=== PATIENT | male | born 1940 | race Caucasian/White ===

== ENCOUNTER → 2021-08-19 | Outpatient (CLI) | payer MEDICARE ==
[~2021-08-19] MED LIST: ADULT LOW DOSE81 MG PO; ADVAIR 250-501 EACH INH; CARDIZEM CD240 MG PO; COLACE 100 MG100 MG PO; IRON325 PO; MIRALAX255 GM PO; MOM PO; MULTIVITAMINS PO; PRAVACHOL40 MG PO; PROAIR HFA8.5 GM INH; SENNA PO; SPIRIVA18 MCG INH; ZESTRIL5 MG PO; ZIAC 2.5-6.251 EACH PO
== END ==
LOC: M.CT 10:12
PROVIDERS: ATTEND Internal Medicine Critical Care Medicine
DX: J98.4 Other disorders of lung (principal); I70.0 Atherosclerosis of aorta; I25.10 Atherosclerotic heart disease of native coronary artery without angina pectoris; R91.1 Solitary pulmonary nodule

== ENCOUNTER 2021-10-13 15:24 | Inpatient (IN) | payer MEDICARE ==
[~2021-10-13] VITALS: Ht 172.7 cm; Wt 89.8 kg
[2021-10-13 15:33] VITALS: BP 116/57
[2021-10-13 16:19] LABS: ABSOLUTE LYMPHOCYTES 0.5 thou/uL (0.8-5.3); ABSOLUTE MONOCYTES 0.4 thou/uL (0.0-1.2); ABSOLUTE NEUTROPHILS 4.7 thou/uL (1.6-8.1); BASOPHILS 0.3 %; HEMATOCRIT 50.4 % (42.0-52.0); HEMOGLOBIN 17.1 gm/dL (14.0-18.0); LYMPHOCYTES 9.1 %; MCHC 33.9 g/dL (28.0-37.0); MCV 94.5 fL (80.0-100.0); MONOCYTES 6.8 %; MPV 8.7 fl. (7.2-11.1); NUCLEATED RBCS 0 /100WBC; PLATELET COUNT* 135 thou/uL (150-400); POLYS 83.8 %; RBC 5.33 mil/uL (4.50-6.00); RDW-CV 14.1 % (10.5-14.5); WBC 5.6 thou/uL (4.0-11.0)
[2021-10-13 16:31] LABS: APTT 29.8 Seconds (25.0-31.3); PROTIME 10.6 Seconds (9.20-11.50)
[2021-10-13 16:49] LABS: CALCIUM 8.7 mg/dL (8.5-10.1); CREATININE 1.9 mg/dL (0.6-1.3)
[2021-10-13 17:00] LABS: ALBUMIN 3.5 g/dL (3.4-5.0); TOTAL BILIRUBIN 0.8 mg/dL (<0.1-1.0); TOTAL PROTEIN 6.9 g/dL (6.4-8.2)
[2021-10-13 17:09] LABS: URINE BLOOD 3+ (Negative); URINE CLARITY TURBID; URINE COLOR BROWN; URINE GLUCOSE-RANDOM NEGATIVE (Negative); URINE KETONES 1+ (Negative); URINE PROTEIN 3+ (Negative); URINE SPECIFIC GRAVITY <= 1.005 (1.005-1.030)
[2021-10-13 17:21] LABS: URINE BILIRUBIN 1+ (Negative); URINE LEUKOCYTES-REFLEX 3+ (Negative); URINE NITRITE-REFLEX POSITIVE (Negative)
[2021-10-13 17:22] LABS: ICTOTEST (BILI CONFIRMATORY) Negative (Negative)
[2021-10-13 17:24] LABS: BACTERIA-REFLEX None Seen /HPF (None Seen); CASTS None Seen /LPF (None Seen); CRYSTALS None Seen /LPF (None Seen); SQUAMOUS NONE SEEN /LPF (0-3); URINE RBC >20 Many /HPF (0-2); URINE WBC-REFLEX 0-5 Rare /HPF (0-5)
[2021-10-13 17:25] LABS: AMORPHOUS URATES Many /LPF (None Seen)
[2021-10-13 18:26] LABS: BE -3.5 mmol/L (-2 to +3); PCO2 40.4 mmHg (35.0-45.0); PO2 63.5 mmHg (75.0-100.0)
[2021-10-13 19:15] VITALS: BP 118/57
[2021-10-14] VITALS (7 sets, daily range): BP systolic 115–138; BP diastolic 64–74
--- NOTE | 2021-10-14 10:54 | EKG ---
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 /EPI
--- NOTE | 2021-10-14 11:03 | EKG ---
[place] [address] ELECTROCARDIOGRAM REPORT Name: GAUDENCIO SKAGGSKEYSHA Fernandez Room: [place] [address] ADM IN [facility]#: [id number] Admission: 10/13/21 Attend Phys: Jam Navarrete Discharge: Date of : 38 Date of Service: 10/14/21311 Report #: [id number] THIS REPORT FOR: //name// [facility] ED Test Date: 2021-10-14 Test Time: 03:12:50 Pat Name: BLANCA SKAGGS Department: Room: [place] [address] Gender: M Thread Laster: MARCELINO : 1940 Requested By: Jam Navarrete Order Number: [id number] MD: Cali Dent Measurements Intervals [place] Rate: 84 P: [place]: QRS: 91 QRSD: 152 T: 30 QT: 406 QTc: 480 Interpretive Statements Atrial fibrillation Right bundle branch block Compared to ECG 10/13/2021 16:15:25 Right bundle-branch block now present rate has slowed Electronically Signed On 10-14-2021 11:03:21 FURNACE LINER by Cali Dent [email or web address] <ELECTRONICALLY SIGNED> By: Cali Dent MD, FAC 10/14/21 1103 1 Cali Dent MD, [facility] /EPI
[2021-10-14] MEDS ORDERED: CILOSTAZOL 100100 MG PO (16:22)
[2021-10-14] MEDS ORDERED: SPIRIVA RESPIMAT4 G1 INH (16:28)
[2021-10-14] MEDS ORDERED: SYMBICORT160 MCG/4. INH (16:28)
[2021-10-14] MEDS ORDERED: MONTELUKAST SODI4 M1 PO (16:29)
[2021-10-14] MEDS ORDERED: BISOPROLOL-HCT1 EAC2 PO (16:30)
[2021-10-14 18:10] LABS: ABSOLUTE LYMPHOCYTES 0.6 thou/uL (0.8-5.3); ABSOLUTE MONOCYTES 0.3 thou/uL (0.0-1.2); ABSOLUTE NEUTROPHILS 2.8 thou/uL (1.6-8.1); BASOPHILS 0.2 %; EOSINOPHILS 0.2 %; HEMOGLOBIN 15.3 gm/dL (14.0-18.0); MCH 31.7 pg (26.0-34.0); MCHC 32.5 g/dL (28.0-37.0); MCV 97.6 fL (80.0-100.0); MPV 10.3 fl. (7.2-11.1); NUCLEATED RBCS 0 /100WBC; PLATELET COUNT* 126 thou/uL (150-400); POLYS 75.6 %; RBC 4.81 mil/uL (4.50-6.00); RDW-CV 14.4 % (10.5-14.5); WBC 3.7 thou/uL (4.0-11.0)
[2021-10-14 18:27] LABS: ALBUMIN 2.6 g/dL (3.4-5.0); CALCIUM 7.9 mg/dL (8.5-10.1); CREATININE 1.8 mg/dL (0.6-1.3); POTASSIUM 4.5 mmol/L (3.5-5.1); TOTAL BILIRUBIN 0.5 mg/dL (<0.1-1.0); TOTAL PROTEIN 5.7 g/dL (6.4-8.2)
[2021-10-15] VITALS (7 sets, daily range): BP systolic 102–143; BP diastolic 60–79
[2021-10-15 01:54] LABS: BE -2.1 mmol/L (-2 to +3); PCO2 49.4 mmHg (35.0-45.0); PO2 102.4 mmHg (75.0-100.0); pH 7.316 (7.340-7.450)
[2021-10-15 04:32] LABS: HEMOGLOBIN 15.2 gm/dL (14.0-18.0); MCH 31.6 pg (26.0-34.0); MCHC 33.1 g/dL (28.0-37.0); MCV 95.3 fL (80.0-100.0); MPV 8.6 fl. (7.2-11.1); NUCLEATED RBCS 0 /100WBC; PLATELET COUNT* 117 thou/uL (150-400); RBC 4.82 mil/uL (4.50-6.00); WBC 2.9 thou/uL (4.0-11.0)
[2021-10-15 04:58] LABS: CALCIUM 8.6 mg/dL (8.5-10.1); CREATININE 1.4 mg/dL (0.6-1.3); POTASSIUM 4.7 mmol/L (3.5-5.1)
[2021-10-15 07:58] LABS: ABSOLUTE LYMPHOCYTES 2.6 thou/uL (0.8-5.3); ABSOLUTE NEUTROPHILS 0.3 thou/uL (1.6-8.1); ATYPICAL LYMPHS 2 %; PLATELET ESTIMATE DECREASED
--- NOTE | 2021-10-15 16:27 | EKG ---
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 : 1940 Requested By: Kashmir Denton Order Number: [id number] Waleska MD: Elier Araiza Measurements Intervals [place] Rate: 91 P: [place]: QRS: 91 QRSD: 142 T: 36 QT: 391 QTc: 482 Interpretive Statements Atrial fibrillation Ventricular premature complex Right bundle branch block Anteroseptal infarct, age indeterminate Compared to ECG 10/14/2021 03:12:50 Ventricular premature complex(es) now present Myocardial infarct finding now present Electronically Signed On 10-15-2021 16:26:59 RETAIL CUSTODIAL ASSOCIATE by Elier Araiza [email or web address] <ELECTRONICALLY SIGNED> By: Elier Araiza MD, FACC 10/15/21 1626 1452 1452 Elier Araiza MD, FAC /EPI
[2021-10-16] VITALS: BP 130/70
[2021-10-16 04:00] VITALS: BP 132/55
[2021-10-16 04:42] LABS: ABSOLUTE LYMPHOCYTES 0.3 thou/uL (0.8-5.3); ABSOLUTE MONOCYTES 0.3 thou/uL (0.0-1.2); ABSOLUTE NEUTROPHILS 6.5 thou/uL (1.6-8.1); HEMOGLOBIN 14.5 gm/dL (14.0-18.0); LYMPHOCYTES 4.3 %; MCH 31.5 pg (26.0-34.0); MCHC 33.7 g/dL (28.0-37.0); MCV 93.4 fL (80.0-100.0); MONOCYTES 3.6 %; MPV 8.8 fl. (7.2-11.1); NUCLEATED RBCS 0 /100WBC; PLATELET COUNT* 134 thou/uL (150-400); POLYS 92.1 %; RBC 4.61 mil/uL (4.50-6.00); RDW-CV 13.5 % (10.5-14.5); WBC 7.1 thou/uL (4.0-11.0)
[2021-10-16 05:19] LABS: ALBUMIN 2.7 g/dL (3.4-5.0); ALKALINE PHOSPHATASE 96 U/L (46-116); ANION GAP 8 mmol/L (7-16); BUN 23 mg/dL (7-18); CALCIUM 8.6 mg/dL (8.5-10.1); CHLORIDE 108 mmol/L (98-107); CO2 27 mmol/L (21-32); CREATININE 1.5 mg/dL (0.6-1.3); GLUCOSE 155 mg/dL (70-99); MAGNESIUM 1.9 mg/dL (1.8-2.4); SGOT 33 U/L (15-37); SGPT 45 U/L (30-65); SODIUM 143 mmol/L (136-145); TOTAL BILIRUBIN 0.4 mg/dL (<0.1-1.0); TOTAL PROTEIN 6.1 g/dL (6.4-8.2)
[2021-10-16 05:38] LABS: SERUM ASSESSMENT Clear
[2021-10-16 05:50] LABS: CHOLESTEROL 132 mg/dL (<200); HDL CHOLESTEROL 43 mg/dL (>40); LDL CHOLESTEROL 64 mg/dL (<100); TC:HDL 3.1 Ratio (Not establshd); TRIGLYCERIDE 125 mg/dL (<150); VLDL 25 mg/dL (<40)
[2021-10-16 08:00] VITALS: BP 143/71
[2021-10-16 14:01] VITALS: BP 133/65
--- NOTE | 2021-10-16 14:17 | CON ---
[address] [address] CONSULTATION Name: BLANCA SKAGGS Room: [address] IN M.R.#: [id number] Admission: 10/13/21 Attend Phys: Tiffany Waldrop Discharge: Date of : 38 Report #: [id number] THIS REPORT FOR: cc: FAM - No family physician/PCP FAM - No family physician/PCP Rene [place] MD ~ DATE OF CONSULTATION: 10/14/2021 REQUESTING PHYSICIAN: Kashmir Denton MD INDICATION FOR CONSULTATION: COVID-19. HISTORY OF PRESENT ILLNESS: This is an 81-year-old gentleman, past medical history is as mentioned below. This does include a history of oxygen dependent COPD. The patient reports that he received one dose of COVID-19 vaccine and likely he is describing Ruslan and Ruslan several months ago. He is not on CPAP or BiPAP long-term. He has a urostomy bag. He has had bladder surgery for bladder cancer. He also does report cardiac history. I do not have details available. The patient now has had increasing shortness of breath. He has also been coughing. He is not able to describe if he is bringing up sputum. He has had significant hematuria as well, also has had AFib with RVR. There is mention of AFib on previous records; however, he is not on anticoagulation long-term. At the time of my evaluation, the patient was on 3 liters nasal cannula. He has been maintaining an O2 saturation of right around 90% with this. Also, he appeared to be actively bronchospastic, note that other physicians have not reported significant bronchospasm on previous exams; however, the patient also was lying down and was drinking orange juice at the time of my evaluation. It is entirely possible that he aspirated and that led to bronchospasm. There was some gurgling from upper airway as well. There is no significant swelling of the lower extremities. There is no calf pain. REVIEW OF SYSTEMS: For 12 points is negative except as mentioned above. PAST MEDICAL HISTORY: COPD, on oxygen 2 liters long-term, congestive heart failure, I do not have his previous left ventricular ejection fraction available, bladder surgery more than once for bladder cancer and has a urostomy bag, I do not have his baseline creatinine available, hyperlipidemia, tonsillectomy, hemorrhoids, right ankle surgery, atrial fibrillation, not noted to be on anticoagulation, hypertension. SOCIAL HISTORY: Extensive history of smoking in the past, has now discontinued. No known history of heavy alcohol use [place] [address] CONSULTATION Name: SHARIFABLANCA Jim Room: [address] IN [facility]#: [id number] Admission: 10/13/21 Attend Phys: Tiffany Waldrop Discharge: Date of : 38 Report #: [id number] ALLERGIES: AMIODARONE IS MENTIONED AN ALLERGY. CURRENT MEDICATIONS: List in [facility] reviewed. HOME MEDICATIONS: List also in [employer] reviewed. FAMILY HISTORY: No pertinent family history. VACCINATION HISTORY: One dose of COVID-19 vaccine. It appears likely that he is describing Ruslan and Ruslan administered several months ago. PHYSICAL EXAMINATION: GENERAL: He is alert, awake and oriented; however, provides a limited history. VITAL SIGNS: Vitals are in the record. These are reviewed. O2 saturation of 90% on 3 liters noted. HEENT: Head is normocephalic and atraumatic. NECK: Does not show raised JVP. CHEST: Breath sounds bilaterally equal. Expirations are prolonged. There are significant expiratory wheezes noted. There is some gurgling mucus in the upper airways noted. ABDOMEN: Soft and nontender. EXTREMITIES: Lower extremities show no edema and no calf tenderness. LABORATORY AND DIAGNOSTIC DATA: Chest x-ray as well as labs are in [facility] and these are reviewed. COVID-19 positive antigen. ASSESSMENT AND PLAN: 1. COVID-19, was treated with a steroid. See discussion regarding which steroid and dose as below. I will repeat labs now and then decide whether to start remdesivir. The likelihood is I will recommend remdesivir. At this point, I would hold off on Actemra, regardless not available in our hospital. It will be a consideration in case he declines. Follow LFTs. Follow creatinine. 2. Acute on chronic hypoxemic respiratory failure, on 3 liters nasal cannula at baseline and maintains O2 saturation in low 90s, on 2 liters he is saturating 90%. Titrate oxygen. Avoid sleeping supine, prone position preferred. 3. Chronic obstructive pulmonary disease/bronchospasm. The patient appeared to be actively bronchospastic at my exam; however, this is not previously reported. It is possible that he was drinking orange juice lying down and aspirated. This led to bronchospasm; therefore, I will give only one dose of Solu-Medrol 80 mg now. He is being started on nebulized bronchodilators as well. I did not increase his baseline dose of dexamethasone, it is 6 mg for now. If he remains bronchospastic, I will increase it tomorrow. [address] [address] CONSULTATION Name: BLANCA SKAGGS Room: [address] IN [facility]#: [id number] Admission: 10/13/21 Attend Phys: Tiffany Waldrop Discharge: Date of : 38 Report #: [id number] 4. Pulmonary infiltrates, only small pulmonary infiltrates on last chest x-ray and CT abdomen and pelvis, which would be adequately covered with ceftriaxone and Zithromax. We will repeat a chest x-ray now. In case there is evidence of aspiration, we will broaden antibiotic coverage accordingly. 5. Hematuria. The Urology service is on the case. 6. Atrial fibrillation with rapid ventricular response. At this time, the heart rate is now back to the normal range. I understand the Urology service is also advised against anticoagulation. He did receive Lovenox earlier today. There is mention of congestive heart failure on the records. I recommend that we obtain a 2-D echo. 7. Renal failure, unknown whether acute or chronic. We will decide after reviewing chest x-ray and labs as to whether to give him more IV fluids. 8. Deep venous thrombosis prophylaxis, sequential compression devices for now. We will also check D-dimer. If elevated, we will do venous Dopplers. 9. Clostridium difficile prophylaxis, Lactinex. 10. Gastrointestinal prophylaxis, already on Protonix. Thanks for this consultation. <ELECTRONICALLY SIGNED> By: Rene [place] MD 10/16/21 1417 1656 1936Aelvin [place] MD /nt
[2021-10-16 18:29] VITALS: BP 137/69
[2021-10-16 20:00] VITALS: BP 130/70
[2021-10-17] VITALS: BP 128/74
[2021-10-17 00:28] VITALS: BP 128/74
[2021-10-17 04:35] VITALS: BP 120/75
[2021-10-17 04:43] LABS: ABSOLUTE LYMPHOCYTES 0.2 thou/uL (0.8-5.3); ABSOLUTE MONOCYTES 0.3 thou/uL (0.0-1.2); ABSOLUTE NEUTROPHILS 8.5 thou/uL (1.6-8.1); HEMATOCRIT 40.6 % (42.0-52.0); HEMOGLOBIN 13.8 gm/dL (14.0-18.0); LYMPHOCYTES 2.4 %; MCH 32.1 pg (26.0-34.0); MCHC 33.9 g/dL (28.0-37.0); MCV 94.7 fL (80.0-100.0); MONOCYTES 3.4 %; MPV 9.2 fl. (7.2-11.1); NUCLEATED RBCS 0 /100WBC; PLATELET COUNT* 136 thou/uL (150-400); POLYS 94.2 %; RBC 4.29 mil/uL (4.50-6.00); RDW-CV 13.6 % (10.5-14.5)
[2021-10-17 05:20] LABS: ALBUMIN 2.5 g/dL (3.4-5.0); CALCIUM 8.6 mg/dL (8.5-10.1); CREATININE 1.5 mg/dL (0.6-1.3); POTASSIUM 4.1 mmol/L (3.5-5.1); TOTAL BILIRUBIN 0.4 mg/dL (<0.1-1.0); TOTAL PROTEIN 5.8 g/dL (6.4-8.2)
[2021-10-17 08:30] LABS: PREALBUMIN 14.8 mg/dL (18.0-35.7)
--- NOTE | 2021-10-17 09:02 | 2DMMODE ---
[place] [address] 2 D/M-MODE ECHOCARDIOGRAM Name: BLANCA SKAGGS Room: [address] IN [place].#: [id number] Admission: 10/13/21 Attend Phys: Jam Navarrete Discharge: Date of : 38 Date of Service: 10/16/21 1528 Report #: [id number] THIS REPORT FOR: cc: FAM - No family physician/PCP FAM - No family physician/PCP Cali Dent MD [facility] ~ APPROVED REPORT Study performed: 10/16/2021 14:14:07 EXAM: Comprehensive 2D, Doppler, and color-flow Echocardiogram Patient Location: Bedside BSA: 2.01 HR: 75 bpm BP: 132/55 mmHg Other Information Study Quality: Adequate Indications Atrial Fibrillation Covid 2D Dimensions IVSd: 9.74 (7-11mm) LVOT Diam: 16.40 (18-24mm) LVDd: 38.42 mm PWd: 10.84 (7-11mm) Ascending Ao: 37.17 (22-36mm) LVDs: 23.49 (25-40mm) Aortic Root: 26.46 mm Volumes Left Atrial Volume (Systole) LA ESV Index: 21.90 mL/m2 Aortic Valve AoV Peak Orlando.: 0.87 m/s AO Peak Gr.: 3.05 mmHg LVOT Max P.54 mmHg AO Mean Gr.: 1.46 mmHg LVOT Mean P.96 mmHg LVOT Max V: 0.62 m/s AO V2 VTI: 14.82 cm LVOT Mean V: 0.47 m/s MARA (VTI): 1.27 cm2 LVOT V1 VTI: 8.89 [place] [address] 2 D/M-MODE ECHOCARDIOGRAM Name: BLANCA SKAGGS Room: [address] IN .R.#: [id number] Admission: 10/13/21 Attend Phys: Jam Navarrete Discharge: Date of : 38 Date of Service: 10/16/21 1528 Report #: [id number] E/A Ratio: 5.17 MV Decel. Time: 196.43 ms MV E Max Orlando.: 1.16 m/s MV PHT: 56.97 ms MVA (PHT): 3.86 cm2 TDI E/Lateral E': 8.29 E/Medial E': 11.60 Medial E' Orlando.: 0.10 m/s Lateral E' Orlando.: 0.14 m/s Pulmonary Valve PV Peak Orlando.: 0.89 m/s PV Peak Gr.: 3.16 mmHg Tricuspid Valve RAP Estimate: 15.00 mmHg TR Peak Gr.: 32.20 mmHg RVSP: 47.20 mmHg PA Pressure: 47.20 mmHg Left Ventricle The left ventricle is normal size. There is normal LV segmental wall motion. There is normal left ventricular wall thickness. Left ventricular systolic function is normal. The left ventricular ejection fraction is within the normal range. A false tendon is noted. LVEF is 60-65%. Right Ventricle The right ventricle is normal size. The right ventricular systolic function is normal. Atria The left atrium size is normal. The right atrium size is normal. Aortic Valve The Aortic valve is sclerotic. No aortic regurgitation is present. There is no aortic valvular stenosis. Mitral Valve The mitral valve is normal in structure. Trace mitral regurgitation. No evidence of mitral valve stenosis. Tricuspid Valve The tricuspid valve is normal in structure. Moderate tricuspid regurgitation. estimated pa pressure 35 [place] [address] 2 D/M-MODE ECHOCARDIOGRAM Name: BLANCA SKAGGS Room: [address]#: [id number] Admission: 10/13/21 Attend Phys: Jam Navarrete Discharge: Date of : 38 Date of Service: 10/16/21 1528 Report #: [id number] Pulmonic Valve Pulmonic valve is not well visualized. There is no pulmonic valvular regurgitation. Great Vessels The aortic root is normal in size. IVC is dilated. Pericardium There is no pericardial effusion. <Conclusion> LVEF is 60-65%. The Aortic valve is sclerotic. Moderate tricuspid regurgitation. estimated pa pressure 35 mm Hg <ELECTRONICALLY SIGNED> By: Cali Dent MD, FACC 10/16/21 1528 1528 1528 Cali Dent MD, FAC /INF
[2021-10-17 12:00] VITALS: BP 130/67
[2021-10-17 16:00] VITALS: BP 147/72
[2021-10-17 20:00] VITALS: BP 138/65
[2021-10-18] VITALS: BP 142/70
[2021-10-18 04:00] VITALS: BP 120/61
[2021-10-18 04:10] LABS: ABSOLUTE LYMPHOCYTES 0.2 thou/uL (0.8-5.3); ABSOLUTE MONOCYTES 0.3 thou/uL (0.0-1.2); ABSOLUTE NEUTROPHILS 8.6 thou/uL (1.6-8.1); BASOPHILS 0.1 %; HEMATOCRIT 42.2 % (42.0-52.0); HEMOGLOBIN 14.4 gm/dL (14.0-18.0); LYMPHOCYTES 1.7 %; MONOCYTES 2.8 %; NUCLEATED RBCS 0 /100WBC; PLATELET COUNT* 147 thou/uL (150-400); POLYS 95.4 %; RBC 4.49 mil/uL (4.50-6.00); RDW-CV 13.4 % (10.5-14.5); WBC 9.1 thou/uL (4.0-11.0)
[2021-10-18 04:40] LABS: ALBUMIN 2.8 g/dL (3.4-5.0); CALCIUM 8.5 mg/dL (8.5-10.1); CREATININE 1.7 mg/dL (0.6-1.3); MAGNESIUM 2.2 mg/dL (1.8-2.4); POTASSIUM 4.2 mmol/L (3.5-5.1); TOTAL BILIRUBIN 0.6 mg/dL (<0.1-1.0); TOTAL PROTEIN 6.1 g/dL (6.4-8.2)
[2021-10-18 08:40] VITALS: BP 134/67
[2021-10-18 11:45] VITALS: BP 129/60
[2021-10-18 16:37] VITALS: BP 120/57
[2021-10-18 20:00] VITALS: BP 136/68
[2021-10-19] VITALS: BP 127/65
[2021-10-19 04:00] VITALS: BP 134/71
[2021-10-19 05:37] LABS: HEMATOCRIT 43.6 % (42.0-52.0); HEMOGLOBIN 14.6 gm/dL (14.0-18.0); MCH 31.8 pg (26.0-34.0); MCHC 33.5 g/dL (28.0-37.0); MCV 94.9 fL (80.0-100.0); MPV 9.4 fl. (7.2-11.1); NUCLEATED RBCS 0 /100WBC; PLATELET COUNT* 154 thou/uL (150-400); RBC 4.59 mil/uL (4.50-6.00); RDW-CV 13.9 % (10.5-14.5); WBC 8.8 thou/uL (4.0-11.0)
[2021-10-19 05:56] LABS: ALBUMIN 2.9 g/dL (3.4-5.0); CALCIUM 8.5 mg/dL (8.5-10.1); CREATININE 1.6 mg/dL (0.6-1.3); MAGNESIUM 2.2 mg/dL (1.8-2.4); POTASSIUM 4.3 mmol/L (3.5-5.1); TOTAL BILIRUBIN 0.6 mg/dL (<0.1-1.0)
[2021-10-19 05:57] LABS: PREALBUMIN 20.9 mg/dL (18.0-35.7)
[2021-10-19 07:04] LABS: ABSOLUTE LYMPHOCYTES 0.2 thou/uL (0.8-5.3); ABSOLUTE MONOCYTES 0.1 thou/uL (0.0-1.2); ABSOLUTE NEUTROPHILS 8.5 thou/uL (1.6-8.1); PLATELET ESTIMATE ADEQUATE
[2021-10-19 08:00] VITALS: BP 135/93
[2021-10-19 11:57] VITALS: BP 137/68
[2021-10-19 16:00] VITALS: BP 149/80
[2021-10-19 20:00] VITALS: BP 132/72
[2021-10-20] VITALS (21 sets, daily range): BP systolic 82–164; BP diastolic 44–96
[2021-10-20 05:49] LABS: ABSOLUTE LYMPHOCYTES 0.2 thou/uL (0.8-5.3); ABSOLUTE MONOCYTES 0.4 thou/uL (0.0-1.2); ABSOLUTE NEUTROPHILS 9.5 thou/uL (1.6-8.1); BASOPHILS 0.2 %; HEMATOCRIT 46.9 % (42.0-52.0); HEMOGLOBIN 15.6 gm/dL (14.0-18.0); LYMPHOCYTES 1.8 %; MCH 31.6 pg (26.0-34.0); MCHC 33.3 g/dL (28.0-37.0); MCV 94.9 fL (80.0-100.0); MONOCYTES 3.6 %; NUCLEATED RBCS 0 /100WBC; PLATELET COUNT* 173 thou/uL (150-400); POLYS 94.4 %; RBC 4.94 mil/uL (4.50-6.00); RDW-CV 13.7 % (10.5-14.5)
[2021-10-20 06:16] LABS: CALCIUM 8.8 mg/dL (8.5-10.1); CREATININE 1.5 mg/dL (0.6-1.3); POTASSIUM 4.5 mmol/L (3.5-5.1); TOTAL BILIRUBIN 0.9 mg/dL (<0.1-1.0); TOTAL PROTEIN 6.2 g/dL (6.4-8.2)
[2021-10-20 15:10] LABS: BE 1.1 mmol/L (-2 to +3); PCO2 45.6 mmHg (35.0-45.0); PO2 80.2 mmHg (75.0-100.0); pH 7.385 (7.340-7.450)
[2021-10-21] VITALS (21 sets, daily range): BP systolic 87–185; BP diastolic 49–118
[2021-10-21 04:20] LABS: ABSOLUTE LYMPHOCYTES 0.1 thou/uL (0.8-5.3); ABSOLUTE MONOCYTES 0.4 thou/uL (0.0-1.2); ABSOLUTE NEUTROPHILS 8.9 thou/uL (1.6-8.1); HEMATOCRIT 46.5 % (42.0-52.0); HEMOGLOBIN 15.4 gm/dL (14.0-18.0); LYMPHOCYTES 1.6 %; MCH 31.4 pg (26.0-34.0); MCHC 33.1 g/dL (28.0-37.0); MCV 94.9 fL (80.0-100.0); MPV 9.4 fl. (7.2-11.1); NUCLEATED RBCS 0 /100WBC; PLATELET COUNT* 173 thou/uL (150-400); POLYS 94.4 %; RDW-CV 13.7 % (10.5-14.5); WBC 9.4 thou/uL (4.0-11.0)
[2021-10-21 06:00] LABS: ALBUMIN 2.9 g/dL (3.4-5.0); CALCIUM 8.8 mg/dL (8.5-10.1); CREATININE 1.8 mg/dL (0.6-1.3); POTASSIUM 4.7 mmol/L (3.5-5.1); TOTAL BILIRUBIN 1.1 mg/dL (<0.1-1.0); TOTAL PROTEIN 5.9 g/dL (6.4-8.2)
[2021-10-21 20:02] LABS: CALCIUM 9.3 mg/dL (8.5-10.1); CREATININE 2.4 mg/dL (0.6-1.3); POTASSIUM 4.3 mmol/L (3.5-5.1)
[2021-10-21 20:06] LABS: APTT 26.5 Seconds (25.0-31.3); INR 1.2
[2021-10-22] VITALS (11 sets, daily range): BP systolic 92–146; BP diastolic 44–68
[2021-10-22 06:07] LABS: ABSOLUTE LYMPHOCYTES 0.1 thou/uL (0.8-5.3); ABSOLUTE MONOCYTES 0.7 thou/uL (0.0-1.2); ABSOLUTE NEUTROPHILS 13.7 thou/uL (1.6-8.1); BASOPHILS 0.1 %; HEMATOCRIT 47.9 % (42.0-52.0); HEMOGLOBIN 15.5 gm/dL (14.0-18.0); LYMPHOCYTES 0.6 %; MCH 30.8 pg (26.0-34.0); MCHC 32.4 g/dL (28.0-37.0); MCV 95.1 fL (80.0-100.0); MONOCYTES 4.7 %; MPV 9.3 fl. (7.2-11.1); NUCLEATED RBCS 0 /100WBC; PLATELET COUNT* 198 thou/uL (150-400); POLYS 94.6 %; RBC 5.04 mil/uL (4.50-6.00); RDW-CV 13.6 % (10.5-14.5); WBC 14.5 thou/uL (4.0-11.0)
[2021-10-22 06:44] LABS: ALBUMIN 3.1 g/dL (3.4-5.0); CALCIUM 9.2 mg/dL (8.5-10.1); CREATININE 2.3 mg/dL (0.6-1.3); MAGNESIUM 3.1 mg/dL (1.8-2.4); POTASSIUM 4.3 mmol/L (3.5-5.1); TOTAL PROTEIN 6.2 g/dL (6.4-8.2)
[2021-10-22 06:51] LABS: PHOSPHORUS* 3.5 mg/dL (2.5-4.9)
[2021-10-22 12:45] LABS: BE -1.3 mmol/L (-2 to +3); PCO2 40.7 mmHg (35.0-45.0); pH 7.382 (7.340-7.450)
[2021-10-22 12:54] LABS: PO2 193.1 mmHg (75.0-100.0)
[2021-10-23] VITALS (25 sets, daily range): BP systolic 94–145; BP diastolic 29–70
[2021-10-23 05:07] LABS: HEMATOCRIT 44.5 % (42.0-52.0); HEMOGLOBIN 14.4 gm/dL (14.0-18.0); MCH 31.5 pg (26.0-34.0); MCHC 32.3 g/dL (28.0-37.0); MCV 97.5 fL (80.0-100.0); MPV 9.8 fl. (7.2-11.1); NUCLEATED RBCS 0 /100WBC; PLATELET COUNT* 142 thou/uL (150-400); RBC 4.57 mil/uL (4.50-6.00)
[2021-10-23 05:14] LABS: ALBUMIN 2.6 g/dL (3.4-5.0); CREATININE 2.7 mg/dL (0.6-1.3); MAGNESIUM 3.3 mg/dL (1.8-2.4); POTASSIUM 4.1 mmol/L (3.5-5.1); TOTAL BILIRUBIN 2.8 mg/dL (<0.1-1.0); TOTAL PROTEIN 5.3 g/dL (6.4-8.2)
[2021-10-23 08:02] LABS: ABSOLUTE LYMPHOCYTES 0.3 thou/uL (0.8-5.3); ABSOLUTE NEUTROPHILS 12.7 thou/uL (1.6-8.1); PLATELET ESTIMATE ADEQUATE
[2021-10-23 10:52] LABS: BE 6.3 mmol/L (-2 to +3); PCO2 49.5 mmHg (35.0-45.0); pH 7.427 (7.340-7.450)
[2021-10-23 13:02] LABS: CREATININE 2.6 mg/dL (0.6-1.3); POTASSIUM 3.7 mmol/L (3.5-5.1)
[2021-10-23 21:10] LABS: URINE BILIRUBIN NEGATIVE (Negative); URINE BLOOD 3+ (Negative); URINE CLARITY SL CLOUDY; URINE COLOR DARK YELLOW; URINE GLUCOSE-RANDOM NEGATIVE (Negative); URINE KETONES NEGATIVE (Negative); URINE LEUKOCYTES 1+ (Negative); URINE NITRITE NEGATIVE (Negative); URINE PROTEIN 1+ (Negative); URINE UROBILINOGEN 0.2 E.U./dl (0.2-1.0)
[2021-10-23 21:19] LABS: SQUAMOUS NONE SEEN /LPF (0-3); URINE RBC >20 Many /HPF (0-2); URINE WBC 6-15 Few /HPF (0-5)
[2021-10-23 21:20] LABS: BACTERIA >30 Many /HPF (None Seen); CASTS None Seen /LPF (None Seen); CRYSTALS None Seen /LPF (None Seen); MUCUS None Seen strn/LPF (None Seen)
[2021-10-24] VITALS (20 sets, daily range): BP systolic 101–126; BP diastolic 45–76
[2021-10-24 04:27] LABS: ABSOLUTE LYMPHOCYTES 0.1 thou/uL (0.8-5.3); ABSOLUTE MONOCYTES 0.4 thou/uL (0.0-1.2); ABSOLUTE NEUTROPHILS 10.7 thou/uL (1.6-8.1); BASOPHILS 0.1 %; HEMATOCRIT 41.1 % (42.0-52.0); HEMOGLOBIN 13.1 gm/dL (14.0-18.0); LYMPHOCYTES 0.8 %; MCH 31.4 pg (26.0-34.0); MCV 98.1 fL (80.0-100.0); MONOCYTES 3.3 %; MPV 10.2 fl. (7.2-11.1); NUCLEATED RBCS 0 /100WBC; PLATELET COUNT* 98 thou/uL (150-400); POLYS 95.8 %; RBC 4.18 mil/uL (4.50-6.00); RDW-CV 14.1 % (10.5-14.5); WBC 11.2 thou/uL (4.0-11.0)
[2021-10-24 05:00] LABS: ALBUMIN 2.3 g/dL (3.4-5.0); CALCIUM 8.6 mg/dL (8.5-10.1); CREATININE 2.5 mg/dL (0.6-1.3); POTASSIUM 4.6 mmol/L (3.5-5.1); TOTAL BILIRUBIN 1.7 mg/dL (<0.1-1.0); TOTAL PROTEIN 4.8 g/dL (6.4-8.2)
[2021-10-24 08:13] LABS: PO2 115.8 mmHg (75.0-100.0); pH 7.313 (7.340-7.450)
[2021-10-24 08:20] LABS: PCO2 60.2 mmHg (35.0-45.0)
[2021-10-24 14:28] LABS: HEMATOCRIT 39.8 % (42.0-52.0); HEMOGLOBIN 12.7 gm/dL (14.0-18.0); MCH 31.6 pg (26.0-34.0); MCHC 31.8 g/dL (28.0-37.0); MCV 99.3 fL (80.0-100.0); MPV 10.4 fl. (7.2-11.1); RBC 4.01 mil/uL (4.50-6.00); RDW-CV 13.9 % (10.5-14.5)
[2021-10-24 16:59] LABS: BE 0.5 mmol/L (-2 to +3); PCO2 44.8 mmHg (35.0-45.0); PO2 66.9 mmHg (75.0-100.0); pH 7.381 (7.340-7.450)
[2021-10-25] VITALS (22 sets, daily range): BP systolic 84–131; BP diastolic 30–57
[2021-10-25 05:25] LABS: HEMATOCRIT 36.9 % (42.0-52.0); HEMOGLOBIN 12.2 gm/dL (14.0-18.0); MCH 32.1 pg (26.0-34.0); MCV 97.1 fL (80.0-100.0); MPV 10.8 fl. (7.2-11.1); RBC 3.8 mil/uL (4.50-6.00); RDW-CV 13.6 % (10.5-14.5); WBC 10.9 thou/uL (4.0-11.0)
[2021-10-25 05:51] LABS: ALBUMIN 2.1 g/dL (3.4-5.0); CREATININE 2.3 mg/dL (0.6-1.3); POTASSIUM 5.2 mmol/L (3.5-5.1); TOTAL BILIRUBIN 1.2 mg/dL (<0.1-1.0); TOTAL PROTEIN 4.4 g/dL (6.4-8.2)
[2021-10-26] VITALS (9 sets, daily range): BP systolic 70–133; BP diastolic 31–61
[2021-10-26 05:06] LABS: HEMATOCRIT 34.9 % (42.0-52.0); HEMOGLOBIN 11.5 gm/dL (14.0-18.0); MCH 31.8 pg (26.0-34.0); MCHC 33.1 g/dL (28.0-37.0); MCV 96.2 fL (80.0-100.0); RBC 3.63 mil/uL (4.50-6.00); WBC 13.8 thou/uL (4.0-11.0)
[2021-10-26 05:43] LABS: CALCIUM 7.8 mg/dL (8.5-10.1); CREATININE 2.7 mg/dL (0.6-1.3); MAGNESIUM 2.7 mg/dL (1.8-2.4); TOTAL BILIRUBIN 0.9 mg/dL (<0.1-1.0); TOTAL PROTEIN 4.4 g/dL (6.4-8.2)
[2021-10-26 09:00] LABS: CALCIUM 7.4 mg/dL (8.5-10.1); CREATININE 3.5 mg/dL (0.6-1.3)
[2021-10-26 09:04] LABS: POTASSIUM 7.5 mmol/L (3.5-5.1)
--- NOTE | 2021-10-27 09:45 | CON ---
[address] [address] CONSULTATION Name: BLANCA SKAGGS Room: [address] IN .R.#: [id number] Admission: 10/13/21 Attend Phys: Tiffany Waldrop Discharge: 10/26/21 Date of : 38 Report #: [id number] THIS REPORT FOR: cc: FAM - No family physician/PCP FAM - No family physician/PCP Gaurav Salazar MD [facility] WITH [facility] ~ DATE OF CONSULTATION: 10/26/2021 CARDIOLOGY RECONSULT NOTE HISTORY OF PRESENT ILLNESS: I was asked by the hospitalist, Dr. Navarrete at all to see this 81-year-old white male in reconsultation for evaluation and treatment of atrial fibrillation with a rapid ventricular response. This man has been in the hospital for some 13 days with COVID-19. He has had atrial fibrillation that was until late yesterday afternoon controlled with diltiazem. He is on a ventilator. He has acute respiratory failure. He has acute on chronic renal failure and he is now hypotensive. He likely has septic shock in my opinion. He had decreasing blood pressure yesterday and increasing heart rate and unfortunately his Cardizem had to be cut back. He had previously been seen by Cardiology on admission and was followed for some time and was signed off of yesterday morning. The subsequent events that are described above have occurred. I was called this morning about his rapid ventricular response, it was up in the 140s. His blood pressure come up a bit. He had a blood pressure of approximately 110. He had gotten a dose of Cardizem, which I believe was being given down the tube at 30 mg. Previously, he had been on 60 the day before. He was on 60 when he was signed off and appeared stable. He got IV metoprolol and it failed to help his heart rate. It was unclear. The nurses that he had been signed off of and they called me early this morning. At that time, his creatinine was 24 and I believe his creatinine clearance was 24. His potassium from the labs that I had access to was normal either. I therefore had him give him 1.5 mg of digoxin IV given that he was still tachycardic, in spite of Cardizem and metoprolol. I was concerned to give any more Cardizem or metoprolol, would drop his pressure again. In spite of the digoxin, his heart rate has not responded. Of note is that subsequently labs have come back indicating increasing BUN and creatinine and increasing potassium. His potassium is being treated. He has now got a blood pressure systolic in the 90s. He has now been made and no code by his family. PAST MEDICAL HISTORY/REVIEW OF SYSTEMS/SOCIAL HISTORY/FAMILY HISTORY: On the previous consult. He is intubated, sedated and unresponsive. PHYSICAL EXAMINATION: He is as above. VITAL SIGNS: His pulse is running in the 140s, systolic blood pressures in the 90s. He is afebrile, respirations are 20 on the ventilator. HEENT: [place] [address] CONSULTATION Name: SHARIFABLANCA MARTINEZ Jim Room: [address] IN [facility]#: [id number] Admission: 10/13/21 Attend Phys: Tiffany Waldrop Discharge: 10/26/21 Date of : 38 Report #: [id number] NECK: There is no jugular venous distention. LUNGS: Revealed decreased and coarse breath sounds bilaterally with an increased expiratory phase. HEART: Revealed distant heart tones. There is an irregularly irregular rhythm with a heart rate of 130-140. There are no murmurs, rubs, thrills, heaves or gallops. ABDOMEN: Soft, flat, nontender. There are no palpable masses, no organomegaly. EXTREMITIES: Reveal no cyanosis, clubbing or edema. The patient was unresponsive. LABORATORY DATA: An EKG has not been done today, however, his monitor strips reveal widening QRS at 111 milliseconds and atrial fibrillation with a rapid ventricular response running in the 130s-140s. He has had some pauses recently. Most recent EKG is from 10/14/2021 and shows atrial fibrillation with a right bundle branch block. He came in with that. Apparently, he has chronic atrial fib. IMPRESSION: 1. Atrial fibrillation with a rapid ventricular response. 2. Acute respiratory failure. 3. COVID-19. 4. Acute on chronic renal failure. 5. Hypotension, likely due to septic shock. RECOMMENDATIONS: Treating with aggressive IV antibiotics. I would make sure he gets some IV fluids as he may be dehydrated. I have asked Nephrology to see him about what to do about his renal failure. I do note another diagnosis would be no code status. I definitely tried to make him comfortable. I doubt that will be able to deal with his rapid ventricular response as he is in fact ALLERGIC TO AMIODARONE. Given his renal derangement, I would be reluctant to give him more digoxin. Thank you very much for asking me to see the patient, if any questions, please feel free to contact me. Unfortunately, his prognosis is poor. <ELECTRONICALLY SIGNED> By: Gaurav Salazar MD, [facility] 10/27/21 0945 0820 [id number]. Addison Salazar MD, WAI /nt
--- NOTE | 2021-10-28 08:54 | CON ---
[address] [address] CONSULTATION Name: BLANCA SKAGGS Room: [address] IN .R.#: [id number] Admission: 10/13/21 Attend Phys: Tiffany Waldrop Discharge: 10/26/21 Date of : 38 Report #: [id number] THIS REPORT FOR: cc: CHAZ - No family physician/PCP FAM - No family physician/PCP Carla Jamison MD ~ DATE OF CONSULTATION: 10/24/2021 NEPHROLOGY CONSULTATION CONSULTING PHYSICIAN: Jam Navarrete DO REASON FOR NEPHROLOGY CONSULTATION: Hypernatremia, acute kidney injury. REASON FOR ADMISSION: Hematuria, found to be positive for COVID, has COVID pneumonia and atrial fibrillation. HISTORY OF PRESENT ILLNESS: This is an 81-year-old male who has past medical history of bladder cancer, status post cystectomy, has ileal conduit, came in with hematuria. He was also found to have difficulty breathing. He was positive for COVID-19 and is being treated for COVID-19 pneumonia by Pulmonary and primary team. His creatinine was 1.9 at the time of admission and stayed around 1.8-1.9, but since 10/21, creatinine has been going up from 2.4, peaked at 2.7. This was day before yesterday and creatinine was 2.6 yesterday and 2.5 today. He was started on IV fluids and with which, his creatinine has been improving. He is nonoliguric, good urine output. He is not on any pressors. Blood pressures although were borderline low in the last few days. Sodium was high in 150s, has been going down, now with fluids 147 today. Blood glucose has been running high. He did have gross hematuria when he came in and CT abdomen showed left-sided renal pelvis dilatation with 10 mm stone in the left ureter and there was found to be an 8 mm stone in the right ureter with multiple bilateral renal calculi, but repeat imaging ultrasound, which was done 2 days ago did not show any hydronephrosis. Has left parenchymal scarring. Urology did evaluate him and just wanted him to be followed by [facility] where he had his bladder removal after he gets discharged from hospital and after he has been treated for COVID-19 infection. Tube feeds also have been started yesterday. At home, in addition to other medications, he also takes hydrochlorothiazide and lisinopril. ALLERGIES: AMIODARONE. REVIEW OF SYSTEMS: As mentioned in history of present illness, could not obtain detailed review of systems from the patient because he is in COVID isolation, did not go inside the room. HOME MEDICATIONS: Include diltiazem, pravastatin, Spiriva, sennosides, aspirin, [place] [address] CONSULTATION Name: SHARIFABLANCA Jmi Room: [address] IN [facility].#: [id number] Admission: 10/13/21 Attend Phys: Tiffany Waldrop Discharge: 10/26/21 Date of : 38 Report #: [id number] multivitamin, ferrous sulfate, docusate, albuterol, lisinopril, hydrochlorothiazide, fluticasone, salmeterol, bisoprolol. FAMILY HISTORY: Not able to obtain from the patient. PAST MEDICAL AND SURGICAL HISTORY: Includes emphysema, hypertension, COPD, bladder cancer, status post cystectomy, ileal conduit, congestive heart failure, baseline creatinine is not known, dyslipidemia, tonsillectomy, hemorrhoidectomy, right ankle surgery in 1963 and atrial fibrillation. SOCIAL HISTORY: No smoking, no alcohol, and no illicit drug use. PHYSICAL EXAMINATION: VITAL SIGNS: His blood pressure is 106/53, he is afebrile at 35.1, pulse rate was 84, respiratory rate was 16, pulse ox was 96%. The patient was not examined. I did not go inside the room because of COVID-19 pandemic, need to avoid exposure and preserve PPE. LABORATORY DATA: His WBC was 11.2, his hemoglobin was 13.1, platelet count was 98,000. Sodium was 147, potassium was 4.6 and bicarbonate was 33 and BUN was 88, creatinine was 2.5, which is down from 2.6. Other labs are reviewed. CPK was . Magnesium was 3.0. IMAGING: Chest x-ray, abdominal x-ray, abdominal ultrasound and other imaging studies were reviewed. ASSESSMENT: 1. Acute kidney injury, baseline creatinine is not known, but he came with a creatinine of 1.9. Could be having underlying chronic kidney disease stage 3, but cannot be sure since we do not have a baseline on him, creatinine peaked at 2.7 and this is in setting of intravascular volume depletion. UA has more than 20 rbc's per high power field with wbc's, 1+ protein. This specimen is from his ileal conduit, he did have kidney stones, but no hydronephrosis. The patient to follow with Urology as outpatient. 2. Acute COVID-19 pneumonia, acute respiratory failure. We will defer to primary for management. 3. Gross hematuria, had bilateral kidney stones, nonobstructing, history of bladder cancer. Urology evaluated the patient here and recommended the patient to follow up with Urology at . 4. Atrial fibrillation with rapid ventricular response. We will defer to Cardiology and primary team. 5. Large ventral hernia with midline scar. [address] [place] [place] [address] CONSULTATION Name: BLANCA SKAGGS Room: [address] IN M.R.#: [id number] Admission: 10/13/21 Attend Phys: Tiffany Waldrop Discharge: 10/26/21 Date of : 38 Report #: [id number] 6. Hypernatremia. 7. History of emphysema and chronic obstructive pulmonary disease. 8. Transaminitis, which is improving. 9. Respiratory acidosis with metabolic compensation with metabolic alkalosis. PLAN: 1. Sodium is improving with IV fluids, creatinine is also improving with IV fluids. I would decrease the D5 water to 70 mL an hour, and free water 250 mL q. 4 hours. 2. We will slowly try to wean him off of D5 water because his blood glucose is running high, in the meantime needs more insulin. We will defer to primary team for management of that. 3. Magnesium is 3.0. Avoid magnesium containing compounds. 4. Avoid hypotension, IV contrast and nephrotoxic agents. 5. Check morning labs. 6. Discussed with the patient's nurse in detail. We will follow with you. <ELECTRONICALLY SIGNED> By: Carla Jamison MD 10/28/21 0854 0751 [id number] gabby Pandya
== END 2021-10-26 10:33 | DRG 208 ==
LOC: M.ERS 15:24 → M.TBA-ER 17:02 → M.ORTHSURG 10-14 11:37
PROVIDERS: Emergency Medicine; Internal Medicine; Internal Medicine Critical Care Medicine; Pediatrics; ADMIT Internal Medicine; ATTEND Internal Medicine
DX: U07.1 COVID-19 (principal); J12.82 Pneumonia due to coronavirus disease 2019; J80 Acute respiratory distress syndrome; I48.20 Chronic atrial fibrillation, unspecified; E87.0 Hyperosmolality and hypernatremia; N17.9 Acute kidney failure, unspecified; E87.3 Alkalosis; J43.9 Emphysema, unspecified; R31.0 Gross hematuria; E78.00 Pure hypercholesterolemia, unspecified; I73.9 Peripheral vascular disease, unspecified; D72.819 Decreased white blood cell count, unspecified; K43.9 Ventral hernia without obstruction or gangrene; N18.9 Chronic kidney disease, unspecified; Z66 Do not resuscitate; E87.5 Hyperkalemia; I12.9 Hypertensive chronic kidney disease with stage 1 through stage 4 chronic kidney disease, or unspecified chronic kidney disease; I95.9 Hypotension, unspecified; I46.9 Cardiac arrest, cause unspecified; R74.01 Elevation of levels of liver transaminase levels; Z88.8 Allergy status to other drugs, medicaments and biological substances; Z79.82 Long term (current) use of aspirin; Z79.899 Other long term (current) drug therapy; Z85.51 Personal history of malignant neoplasm of bladder; Z87.891 Personal history of nicotine dependence